=== PATIENT | female | born 2000 | race Hispanic/Latino ===

== ENCOUNTER 2024-01-21 13:39 | Emergency (ER) | payer BC ==
[~2024-01-21] VITALS: Ht 154.9 cm; Wt 104.3 kg
[2024-01-21] MEDS: SOLU-MEDROL 125MG VIAL IVP ONE (15:17)
[2024-01-21] MEDS: KETOROLAC 60 MG VIAL (30MG/ML) IM ONE (15:17)
[2024-01-21] MEDS: CYCLOBENZAPRINE HCL 10 MG TABLET PO ONE (15:17)
[2024-01-21] MEDS: ONDANSETRON ODT 4MG TAB SL ONE (15:33)
[2024-01-21] MEDS: ONDANSETRON ODT 4MG TAB ONE (15:33)
[2024-01-21 16:25] LABS: APPEARANCE,URINE CLEAR (CLEAR); BILIRUBIN,URINE NEGATIVE (NEGATIVE); COLOR,URINE LIGHT-YELLOW (YELLOW); GLUCOSE, URINE (UA) NEGATIVE (NEGATIVE); KETONES,URINE NEGATIVE (NEGATIVE); LEUKOCYTE ESTERASE ,URINE NEGATIVE Leu/uL (NEGATIVE); NITRATE,URINE NEGATIVE (NEGATIVE); OCCULT BLOOD,URINE NEGATIVE (NEGATIVE); PROTEIN,URINE 10 mg/dL (NEGATIVE); UROBILINOGEN,URINE 0.2 mg/dL (0.2-1.0)
[2024-01-21 16:29] LABS: ADD UA MICROSCOPIC YES
[2024-01-21 16:30] LABS: BACTERIA,URINE RARE /HPF (None Seen); HCG,QUALITATIVE URINE NEGATIVE (NEGATIVE); MUCUS,URINE RARE LPF (None Seen); SQUAMOUS EPITHELIAL CELL,UR RARE /HPF (0-2)
[2024-01-21] MEDS ORDERED: IBUP-2077 PO (17:08)
[2024-01-21] MEDS ORDERED: METH4TAB3 PO (17:08)
[2024-01-21] MEDS ORDERED: CYCL10TA16 PO (17:08)
[2024-01-21 17:19] VITALS: BP 120/82; PULSE 77; RESP 20; O2SAT 99
== END 2024-01-21 18:20 | disposition home or self-care (01) ==
LOC: EDH 13:39
DX: G89.29 Other chronic pain (principal); M54.42 Lumbago with sciatica, left side; M54.41 Lumbago with sciatica, right side
CPT/HCPCS: 99284; 96374; 81001; 81025; 72100; 96372; J2919; J1885

== ENCOUNTER 2024-08-11 05:01 | Emergency (ER) | payer SELFPAY ==
[~2024-08-11] VITALS: Ht 154.9 cm; Wt 106.1 kg
[~2024-08-11 05:01] MED LIST: CYCL10TA16 PO; IBUP-2077 PO; METH4TAB3 PO
[2024-08-11 05:04] VITALS: TEMP 98.4
--- NOTE | 2024-08-11 05:12 | ERN ---
ED Note History of Present Illness Stated Complaint: LOW BACK PAIN, DIFFUSE ABD PAIN, CP, N/V Chief Complaint: Abdominal Pain Time Seen by MD: 05:03 Dictation: This is a 23-year-old female who presented to the emergency room with complaints of multiple organ symptoms severe lower back pain radiating down her legs, diffuse abdominal pain nausea vomitings as well as pain radiating to the chest area. Her abdominal pain is very diffuse and upper quadrants mostly right and reported nausea vomitings profusely about 3-4 times prior to the presentation. No hematemesis or melena no fevers chills or rigors. Temperature 98.4 pulse 81 respirations 18 blood pressure 127/86 with a pulse oximetry of 98% on room air She has a history of lumbar radiculopathy and chronic lower back pain and has also received shots in the back. She has been to emergency rooms including [facility] as well as in [place]. Allergies: Coded Allergies: No Known Drug Allergies (Unverified Allergy, Unknown, 01/21/24) Home Meds Active Scripts Cyclobenzaprine HCl (Flexeril) 10 Mg Tab, 10 MG PO TID for muscle sstiffness for 10 Days, #30 TAB 0 Refills Prov:RAY STONE NP 01/21/24 Ibuprofen (Ibuprofen 800 mg Tab) 800 Mg Tab, 800 MG PO Q8H PRN for fever or pain, #30 TAB 0 Refills Prov:RAY STONE COMPUTER ENGINEERING PROFESSOR 01/21/24 Methylprednisolone (Medrol) 4 Mg Tab.ds.pk, 4 MG PO AD, #1 UNIT Prov:RAY STONE NP 01/21/24 Past Medical History Past Medical History: Anemia, Other Additional Past Medical Hx: CHRONIC BACK PAIN Surgical History: Other Surgical History Other: COSMETIC Family History: Negative Social History: Negative History: Not Applicable RN Note Reviewed/Agreed w/PFSH: Yes Review of System Dictation Constitutional: Negative for fever,chills, and weight loss Eyes: Negative for injury, pain,redness, and discharge ENT: Negative for injury,pain or swelling Cardiovascular: Negative for chest pain, palpitations, and edema Respiratory: Negative for shortness of breath, cough, and wheezing, Abdomen/GI: Negative for abdominal pain, nausea, vomiting, diarrhea, and constipation Back: Negative for injury and pain : Negative for injury, bleeding and discharge MS/Extremity: Negative for injury and deformity Skin: Negative for rash, and discoloration Neuro: Negative for headache, weakness, numbness, tingling, and seizure Psych: Negative for suicide ideation, homicidal ideation, and hallucinations Initial Vital Sign VS Vital Signs Date Time Temp Pulse Resp B/P (MAP) Pulse Ox O2 Delivery O2 Flow Rate FiO2 08/11/24 05:03 98.4 81 18 127/86 98 Room Air* 0 21 Physical Exam Dictation General: awake, alert, NAD Head/Face: Normocephalic, atraumatic Eyes: PERRL, EOMI, vision at baseline ENT: oral cavity clear, TMs clear, no signs of infection Neck: Trachea midline, supple, no nuchal rigidity Cardiovascular: RRR, normal S1/S2, No MRGs, no JVD Respiratory: CTAB, no respiratory distress, No rales or wheezes Abdomen: Soft, non-tender, non-distended, normal bowel sounds, no guarding or rebound. Skin: Warm, dry, normal turgor, no rash MS/Extremity: Pulses equal, no cyanosis, neurovascular intact, FROM Neuro: COAx4, GCS 15, strength 5/5, CN 2-12 intact, normal cerebellar exam, normal gait, Psych: Normal behavior, mood, and affect normal Extremities-trace edema without any palpable cords, Homans sign is negative Results (Laboratory/Radiology) Laboratory/Radiology Laboratory Tests Test 08/11/24 05:16 08/11/24 05:18 White Blood Count 9.3 K/uL (4.8-10.8) Red Blood Count 5.26 MIL/uL (4.00-5.50) Hemoglobin 10.8 g/dL (12.0-16.0) L Hematocrit 36.5 % (36-48) Mean Corpuscular Volume 69.4 fL (79-99) L Mean Corpuscular Hemoglobin 20.5 pg (27.0-33.0) L Mean Corpuscular Hemoglobin Concent 29.6 g/dL (32.0-36.0) L Red Cell Distribution Width 18.5 % (11.0-15.5) H Platelet Count 374 K/uL (130-400) Mean Platelet Volume 10.8 fL (7.5-10.5) H Immature Granulocyte % (Auto) 0.4 % (0-1) Neutrophils (%) (Auto) 65.1 % (40.0-77.0) Lymphocytes (%) (Auto) 25.6 % (21.0-51.0) Monocytes (%) (Auto) 6.2 % (3.0-13.0) Eosinophils (%) (Auto) 2.3 % (0.0-8.0) Basophils (%) (Auto) 0.4 % (0.0-5.0) Neutrophils # (Auto) 6.0 K/uL (1.8-7.7) Lymphocytes # (Auto) 2.4 K/uL (1.0-4.8) Monocytes # (Auto) 0.6 K/uL (0.1-1.0) Eosinophils # (Auto) 0.21 K/uL (0.00-0.70) Basophils # (Auto) 0.04 K/uL (0.00-0.20) Absolute Immature Granulocyte (auto 0.04 K/uL (0-1) Nucleated Red Blood Cells 0.0 % (0.0-0.19) Red Blood Cell Morphology See comments Sodium Level 141 mmol/L (136-145) Potassium Level 3.8 mmol/L (3.5-5.1) Chloride Level 108 mmol/L (101-111) Carbon Dioxide Level 25 mmol/L (21-32) Blood Urea Nitrogen 14 mg/dL (7-18) Creatinine 0.8 mg/dL (0.5-1.0) Glomerular Filtration Rate Calc 105 mL/min (>90) Random Glucose 110 mg/dL (70-105) H Total Calcium 9.1 mg/dL (8.5-10.1) Total Bilirubin 0.3 mg/dL (0.2-1.0) Aspartate Amino Transf (AST/SGOT) 47 U/L (10-37) H Alanine Aminotransferase (ALT/SGPT) 88 U/L (12-78) H Alkaline Phosphatase 106 U/L (50-136) Total Protein 7.5 g/dL (6.0-8.3) Albumin 3.0 g/dL (3.5-5.0) L Lipase 51 U/L (16-77) Urine Color YELLOW (YELLOW) Urine Appearance CLEAR (CLEAR) Urine pH 6.0 (5.0-8.0) Urine Specific [place] 1.028 (1.001-1.031) Urine Protein 10 mg/dL (NEGATIVE) H Urine Glucose (UA) NEGATIVE mg/dL (NEGATIVE) Urine Ketones NEGATIVE mg/dL (NEGATIVE) Urine Occult Blood +- (TRACE) (NEGATIVE) H Urine Nitrate NEGATIVE (NEGATIVE) Urine Bilirubin NEGATIVE mg/dL (NEGATIVE) Urine Urobilinogen 0.2 mg/dL (0.2-1.0) Urine Leukocyte Esterase NEGATIVE Key/uL Urine RBC 2-5 /HPF (0-1) H Urine WBC 2-5 /HPF (0-1) H Urine Squamous Epithelial Cells FEW /HPF (0-2) Urine Bacteria None /HPF (None Seen) Labs Reviewed?: Yes ED Course ED Course Orders Procedure Category Date Status Time Cbc With Differential LAB 08/11/24 Complete 05:11 Comprehensive LAB 08/11/24 Complete Metabolic Panel 05:11 Lipase LAB 08/11/24 Complete 05:11 Urinalysis Profile LAB 08/11/24 Complete 05:11 Morphine 2mg Syg PHA 08/11/24 Complete (Morphine 2mg Syg) 06:00 Ondansetron 4mg Inj PHA 08/11/24 Complete (Zofran 4mg Inj) 06:00 Pantoprazole 40mg Tab PHA 08/11/24 Complete (Protonix 40mg Tab 06:00 ,Urine Test LAB 08/11/24 In Process 05:59 Current Medications Medications (Trade) Dose Ordered Sig/Nohemi Route PRN Reason Start Time Stop Time Status Last Admin Dose Admin Morphine Sulfate (morPHINE 2MG SYG) 2 mg ONCE ONCE IVP 08/11/24 06:00 08/11/24 06:02 DC Ondansetron HCl (zoFRAN 4MG INJ) 4 mg ONCE ONCE IVP 08/11/24 06:00 08/11/24 06:02 DC 08/11/24 06:12 Pantoprazole Sodium (PROTonix 40MG TAB) 40 mg ONCE ONCE PO 08/11/24 06:00 08/11/24 06:02 DC 08/11/24 06:12 Vital Signs Date Time Temp Pulse Resp B/P (MAP) Pulse Ox O2 Delivery O2 Flow Rate FiO2 08/11/24 06:34 72 16 118/79 99 Room Air* 0 21 08/11/24 05:04 98.4 81 18 127/86 98 Room Air 0 08/11/24 05:03 98.4 81 18 127/86 98 Room Air* 0 21 We will perform diagnostic labs, advanced imaging and administer medications according to the patient's complaint. Once the results are available, will yumiko wadew and personally interpreted the labs to rule out any acute life-threatening emergency the trach require immediate intervention and treatment. I will then re-evaluate the patient after treatment and diagnostic exams have return to determine whether the patient requires any further testing, can safely be discharged home or need further admission to hospital for additional treatment and evaluation. Medical Decision Making MDM MDM: Differential diagnosis: Gastritis, esophagitis, cholecystitis, biliary colic, small-bowel obstruction, pancreatitis Rationale: Tests considered and ordered secondary to shared decision making include: Previous outside records reviewed: Old ER visits. Risk of complication and/or morbidity or mortality of patient management: None Medications-Per medication reconciliation Need for hospitalization: Patient does not meet criteria for hospitalization. Need for emergency major/minor surgery: No There are no social concerns with this patient. Prescription drug management Prescriptions will include symptomatic care Patient's prior external medical records from other ER visits were reviewed by me as indicated. Prior testing and results from previous visits were reviewed. Prior tests were taken into account with medical decision making and resource utilization, independent historian/historians were used to obtain complete medical history. I independently interpreted the test that were performed, results were reviewed by me and considered findings on radiology if ordered. Medical management and examination interpretation discussions were had by me with other qualified healthcare professionals as indicated for the patient's care. Problem List Problem List: (1) Acute exacerbation of chronic low back pain (2) Chronic sciatica (3) Biliary colic (4) Nausea & vomiting (5) Abnormal liver function tests DX & DISP Disposition: Discharge Departure Impression: Primary Impression: Acute exacerbation of chronic low back pain Additional Impressions: Chronic sciatica, Biliary colic, Nausea & vomiting, Abnormal liver function tests Condition: Stable Additional Instructions: Patient and the caregiver have been informed of all the diagnostic tests and the imaging conducted during the today's visit to the emergency room and has verbalized understanding of the results I have personally reviewed and interpreted all diagnostic exams performed here in the ER today as well as the vital signs documented by the nursing staff. The patient is now being discharged to home and should follow up with the primary care physician or the specialist as directed by the ER staff. Follow-up with primary care provider in 1 to 2 days. Take medications as directed here in the emergency room. Okay to continue home medications unless otherwise discussed during your visit in the emergency room today. Return to your nearest emergency room if symptoms worsen or if there is no improvement. Call 911 if you need immediate assistance. Take Tylenol or Motrin [id number] as needed and if no contraindications are present. Increase oral hydration. A wound culture or urine culture was ordered here in the emergency room department please follow-up with primary care provider and advise them to get repeat ports from our facility. If you had any Sam wrap/splints that were applied here, please do not remove them until you see your primary care or specialty. Referrals: SELF,REFERRAL (PCP) STELLA BEASLEY MD Aug 11, 2024 05:12
[2024-08-11 05:22] LABS: BASOPHILS # (AUTO) 0.04 K/uL (0.00-0.20); BASOPHILS % (AUTO) 0.4 % (0.0-5.0); EOSINOPHILS # (AUTO) 0.21 K/uL (0.00-0.70); EOSINOPHILS % (AUTO) 2.3 % (0.0-8.0); HEMATOCRIT 36.5 % (36-48); IMMATURE GRANULOCYTE ABSOLUTE 0.04 K/uL (0-1); LYMPHOCYTES # (AUTO) 2.4 K/uL (1.0-4.8); LYMPHOCYTES % (AUTO) 25.6 % (21.0-51.0); MEAN CORPUSCULAR HEMOGLOBIN 20.5 pg (27.0-33.0); MEAN CORPUSCULAR HGB CONC 29.6 g/dL (32.0-36.0); MEAN CORPUSCULAR VOLUME 69.4 fL (79-99); MONOCYTES # (AUTO) 0.6 K/uL (0.1-1.0); MONOCYTES % (AUTO) 6.2 % (3.0-13.0); NEUTROPHILS % (AUTO) 65.1 % (40.0-77.0); PLATELET COUNT (AUTO) 374 K/uL (130-400); RED BLOOD CELL COUNT(AUTO) 5.26 MIL/uL (4.00-5.50); RED CELL DISTRIBUTION WIDTH 18.5 % (11.0-15.5); WHITE BLOOD COUNT (AUTO) 9.3 K/uL (4.8-10.8)
[2024-08-11 05:29] LABS: APPEARANCE,URINE CLEAR (CLEAR); BILIRUBIN,URINE NEGATIVE (NEGATIVE); COLOR,URINE YELLOW (YELLOW); GLUCOSE, URINE (UA) NEGATIVE (NEGATIVE); KETONES,URINE NEGATIVE (NEGATIVE); LEUKOCYTE ESTERASE ,URINE NEGATIVE Leu/uL (NEGATIVE); NITRATE,URINE NEGATIVE (NEGATIVE); PROTEIN,URINE 10 mg/dL (NEGATIVE); UROBILINOGEN,URINE 0.2 mg/dL (0.2-1.0)
[2024-08-11 05:37] LABS: CREATININE 0.8 mg/dL (0.5-1.0); POTASSIUM 3.8 mmol/L (3.5-5.1)
[2024-08-11 05:41] LABS: BILIRUBIN,TOTAL 0.3 mg/dL (0.2-1.0); TOTAL PROTEIN, SERUM 7.5 g/dL (6.0-8.3)
[2024-08-11 05:46] LABS: ADD UA MICROSCOPIC YES; MUCUS,URINE RARE LPF (None Seen); SQUAMOUS EPITHELIAL CELL,UR FEW /HPF (0-2)
[2024-08-11] MEDS: ondanSETRON 4MG INJ IVP ONE (06:12)
[2024-08-11] MEDS: morPHINE 2 MG SYG IVP ONE (06:12)
[2024-08-11] MEDS: PANTOPrazole 40 MG TAB DR PO ONE (06:12)
[2024-08-11 06:34] VITALS: BP 118/79; PULSE 72; RESP 16; O2SAT 99
== END 2024-08-11 07:20 | disposition home or self-care (01) ==
LOC: EDH 05:01
DX: G89.29 Other chronic pain (principal); M54.50 Low back pain, unspecified; M54.31 Sciatica, right side; K80.50 Calculus of bile duct without cholangitis or cholecystitis without obstruction; R11.2 Nausea with vomiting, unspecified; R79.89 Other specified abnormal findings of blood chemistry
CPT/HCPCS: 99283; 96374; 80053; 83690; 85025; 81001; 81025; 36415; J2405

== ENCOUNTER 2024-12-07 20:17 | Emergency (ER) | payer BC ==
[~2024-12-07] VITALS: Ht 154.9 cm; Wt 108.9 kg
--- NOTE | 2024-12-07 20:19 | NUR ---
UA CUP PROVIDED
[2024-12-07 20:56] LABS: BASOPHILS # (AUTO) 0.04 K/uL (0.00-0.20); BASOPHILS % (AUTO) 0.3 % (0.0-5.0); EOSINOPHILS # (AUTO) 0.07 K/uL (0.00-0.70); EOSINOPHILS % (AUTO) 0.6 % (0.0-8.0); HEMATOCRIT 36.9 % (36-48); IMMATURE GRANULOCYTE ABSOLUTE 0.06 K/uL (0-1); LYMPHOCYTES # (AUTO) 2.8 K/uL (1.0-4.8); LYMPHOCYTES % (AUTO) 23.5 % (21.0-51.0); MEAN CORPUSCULAR HEMOGLOBIN 21.2 pg (27.0-33.0); MEAN CORPUSCULAR HGB CONC 29.3 g/dL (32.0-36.0); MEAN CORPUSCULAR VOLUME 72.5 fL (79-99); MONOCYTES # (AUTO) 0.6 K/uL (0.1-1.0); NEUTROPHILS # (AUTO) 8.3 K/uL (1.8-7.7); NEUTROPHILS % (AUTO) 70.1 % (40.0-77.0); PLATELET COUNT (AUTO) 358 K/uL (130-400); RED BLOOD CELL COUNT(AUTO) 5.09 MIL/uL (4.00-5.50); RED CELL DISTRIBUTION WIDTH 16.2 % (11.0-15.5); WHITE BLOOD COUNT (AUTO) 11.8 K/uL (4.8-10.8)
[2024-12-07 21:10] LABS: CREATININE 0.8 mg/dL (0.5-1.0); POTASSIUM 3.5 mmol/L (3.5-5.1)
[2024-12-07 21:33] LABS: APPEARANCE,URINE CLEAR (CLEAR); BILIRUBIN,URINE NEGATIVE (NEGATIVE); COLOR,URINE YELLOW (YELLOW); GLUCOSE, URINE (UA) NEGATIVE (NEGATIVE); KETONES,URINE 40 mg/dL (NEGATIVE); LEUKOCYTE ESTERASE ,URINE NEGATIVE Leu/uL (NEGATIVE); NITRATE,URINE NEGATIVE (NEGATIVE); OCCULT BLOOD,URINE NEGATIVE (NEGATIVE); PROTEIN,URINE 20 mg/dL (NEGATIVE); UROBILINOGEN,URINE 0.2 mg/dL (0.2-1.0)
[2024-12-07 21:34] LABS: ADD UA MICROSCOPIC YES
[2024-12-07 21:36] LABS: MUCUS,URINE FEW LPF (None Seen); SQUAMOUS EPITHELIAL CELL,UR FEW /HPF (0-2); WBC,URINE 0-1 /HPF (0-1)
[2024-12-07] MEDS: acetaMINOPHEN 325 MG TAB PO STA (21:37)
[2024-12-07 21:50] VITALS: BP 154/89; PULSE 88; RESP 18; TEMP 97.6; O2SAT 98
--- NOTE | 2024-12-07 22:07 | ERN ---
ED Note History of Present Illness Stated Complaint: SUPRAPUBIC PAIN Chief Complaint: Abdominal Pain Time Seen by MD: 20:20 Time Seen by Midlevel: 20:22 Dictation: 24-year-old female coming in with complaints of suprapubic pain for the last two weeks. Patient states states she was at work as she had a sudden pain says Gypsy region and left lower quadrant area. Denies any fever, nausea, vomiting, diarrhea, vaginal bleeding or vaginal discharge. Denies any dysuria. Allergies: Coded Allergies: No Known Drug Allergies (Unverified Allergy, Unknown, 01/21/24) Home Meds Active Scripts Cyclobenzaprine HCl (Flexeril) 10 Mg Tab, 10 MG PO TID for muscle sstiffness for 10 Days, #30 TAB 0 Refills Prov:RAY STONE BARREL COOPER 01/21/24 Ibuprofen (Ibuprofen 800 mg Tab) 800 Mg Tab, 800 MG PO Q8H PRN for fever or pain, #30 TAB 0 Refills Prov:RAY STONE BARREL COOPER 01/21/24 Methylprednisolone (Medrol) 4 Mg Tab.ds.pk, 4 MG PO AD, #1 UNIT Prov:RAY STONE NP 01/21/24 Past Medical History Past Medical History: Anemia, Other Additional Past Medical Hx: CHRONIC BACK PAIN Surgical History: Other Surgical History Other: [address]AV[address], ROD[place] Family History: Negative Social History: Negative History: Not Applicable LMP: Oct 31, 2024 Review of System Dictation Constitutional: Negative for fever,chills, and weight loss Eyes: Negative for injury, pain,redness, and discharge ENT: Negative for injury,pain or swelling Cardiovascular: Negative for chest pain, palpitations, and edema Respiratory: Negative for shortness of breath, cough, and wheezing, Abdomen/GI: Complaining of suprapubic pain, no nausea, no vomiting, no diarrhea, and no constipation Back: Negative for injury and pain : Negative for injury, bleeding and discharge MS/Extremity: Negative for injury and deformity Skin: Negative for rash, and discoloration Neuro: Negative for headache, weakness, numbness, tingling, and seizure Psych: Negative for suicide ideation, homicidal ideation, and hallucinations Review of Systems: was completed Initial Vital Sign VS Vital Signs Date Time Temp Pulse Resp B/P (MAP) Pulse Ox O2 Delivery O2 Flow Rate FiO2 4/13/25 20:19 98.4 76 20 165/88 98 Room Air 12/07/24 21:50 0 21 Physical Exam Dictation General: awake, alert, NAD Head/Face: Normocephalic, atraumatic Eyes: PERRL, EOMI, vision at baseline ENT: oral cavity clear, TMs clear, no signs of infection Neck: Trachea midline, supple, no nuchal rigidity Cardiovascular: RRR, normal S1/S2, No MRGs, no JVD Respiratory: CTAB, no respiratory distress, No rales or wheezes Abdomen: Soft, non-tender, non-distended, normal bowel sounds, no guarding or rebound. Skin: Warm, dry, normal turgor, no rash MS/Extremity: Pulses equal, no cyanosis, neurovascular intact, FROM Neuro: COAx4, GCS 15, strength 5/5, CN 2-12 intact, normal cerebellar exam, normal gait, Psych: Normal behavior, mood, and affect normal Results (Laboratory/Radiology) Laboratory/Radiology Laboratory Tests Test 12/07/24 20:46 12/07/24 21:26 White Blood Count 11.8 K/uL (4.8-10.8) H Red Blood Count 5.09 MIL/uL (4.00-5.50) Hemoglobin 10.8 g/dL (12.0-16.0) L Hematocrit 36.9 % (36-48) Mean Corpuscular Volume 72.5 fL (79-99) L Mean Corpuscular Hemoglobin 21.2 pg (27.0-33.0) L Mean Corpuscular Hemoglobin Concent 29.3 g/dL (32.0-36.0) L Red Cell Distribution Width 16.2 % (11.0-15.5) H Platelet Count 358 K/uL (130-400) Mean Platelet Volume 10.8 fL (7.5-10.5) H Immature Granulocyte % (Auto) 0.5 % (0-1) Neutrophils (%) (Auto) 70.1 % (40.0-77.0) Lymphocytes (%) (Auto) 23.5 % (21.0-51.0) Monocytes (%) (Auto) 5.0 % (3.0-13.0) Eosinophils (%) (Auto) 0.6 % (0.0-8.0) Basophils (%) (Auto) 0.3 % (0.0-5.0) Neutrophils # (Auto) 8.3 K/uL (1.8-7.7) H Lymphocytes # (Auto) 2.8 K/uL (1.0-4.8) Monocytes # (Auto) 0.6 K/uL (0.1-1.0) Eosinophils # (Auto) 0.07 K/uL (0.00-0.70) Basophils # (Auto) 0.04 K/uL (0.00-0.20) Absolute Immature Granulocyte (auto 0.06 K/uL (0-1) Nucleated Red Blood Cells 0.0 % (0.0-0.19) Red Blood Cell Morphology See comments Sodium Level 138 mmol/L (136-145) Potassium Level 3.5 mmol/L (3.5-5.1) Chloride Level 104 mmol/L (101-111) Carbon Dioxide Level 28 mmol/L (21-32) Blood Urea Nitrogen 15 mg/dL (7-18) Creatinine 0.8 mg/dL (0.5-1.0) Glomerular Filtration Rate Calc 105 mL/min (>90) Random Glucose 112 mg/dL (70-105) H Total Calcium 9.3 mg/dL (8.5-10.1) Human Chorionic Gonadotropin, Quant 0 mIU/mL (0-5) Urine Color YELLOW (YELLOW) Urine Appearance CLEAR (CLEAR) Urine pH 6.0 (5.0-8.0) Urine Specific [place] 1.036 (1.001-1.031) Urine Protein 20 mg/dL (NEGATIVE) H Urine Glucose (UA) NEGATIVE mg/dL (NEGATIVE) Urine Ketones 40 mg/dL (NEGATIVE) H Urine Occult Blood NEGATIVE (NEGATIVE) Urine Nitrate NEGATIVE (NEGATIVE) Urine Bilirubin NEGATIVE mg/dL (NEGATIVE) Urine Urobilinogen 0.2 mg/dL (0.2-1.0) Urine Leukocyte Esterase NEGATIVE Key/uL Urine RBC 2-5 /HPF (0-1) H Urine WBC 0-1 /HPF (0-1) Urine Squamous Epithelial Cells FEW /HPF (0-2) Urine Bacteria None /HPF (None Seen) Labs Reviewed?: Yes ED Course ED Course Orders Procedure Category Date Status Time Cbc With Differential LAB 12/07/24 Complete 20:22 Basic Metabolic Panel LAB 12/07/24 Complete 20:22 Urinalysis Profile LAB 12/07/24 Complete 20:22 Hcg,Quantitative LAB 12/07/24 Complete 20:22 Acetaminophen 325 Tab PHA 12/07/24 Complete (Tylenol 325mg Tab 20:23 Current Medications Medications (Trade) Dose Ordered Sig/Nohemi Route PRN Reason Start Time Stop Time Status Last Admin Dose Admin Acetaminophen (TYLenol 325MG TAB) 650 mg ONCE STAT PO 12/07/24 20:23 12/07/24 20:24 DC 12/07/24 21:37 Vital Signs Date Time Temp Pulse Resp B/P (MAP) Pulse Ox O2 Delivery O2 Flow Rate FiO2 12/07/24 21:50 97.5 88 18 154/89 98 Room Air* 0 21 12/07/24 20:19 98.4 76 20 165/88 98 Room Air Medical Decision Making MDM MDM: CBC shows no leukocytosis, mild anemia hemoglobin of 10.8, however this seems to be patient's baseline his last year she had the same hemoglobin. No thrombocytopenia. Chemistry unremarkable. Urine shows no evidence of urinary tract infection. Discussed with the patient's finding. Educated patient was this continues she needs to follow up with PCP or OBGYN at this could be a gynecological problem. This time patient's vital signs are stable and blood work is stable. There is no vaginal discharge or vaginal bleeding. Abdomen is soft, nontender. Patient was okay to follow up outpatient. Differential diagnosis: Rationale: Tests considered and ordered secondary to shared decision making include: Previous outside records reviewed: Old ER visits. Risk of complication and/or morbidity or mortality of patient management: None Medications-Per medication reconciliation Need for hospitalization: Patient does not meet criteria for hospitalization. Need for emergency major/minor surgery: No There are no social concerns with this patient. Prescription drug management Prescriptions will include symptomatic care Patient's prior external medical records from other ER visits were reviewed by me as indicated. Prior testing and results from previous visits were reviewed. Prior tests were taken into account with medical decision making and resource utilization, independent historian/historians were used to obtain complete medical history. I independently interpreted the test that were performed, results were reviewed by me and considered findings on radiology if ordered. Medical management and examination interpretation discussions were had by me with other qualified healthcare professionals as indicated for the patient's care. DX & DISP Disposition: Discharge Departure Impression: Primary Impression: Abdominal pain Condition: Stable Additional Instructions: Please follow up with PCP and or with the OBGYN Referrals: SELF,REFERRAL (PCP) Time of Disposition: 22:05 I have reviewed the case, and I agree with, Diagnosis and Plan THALIA MALDONADO NP Dec 07, 2024 22:07
== END 2024-12-07 22:16 | disposition home or self-care (01) ==
LOC: EDH 20:17
DX: R10.2 Pelvic and perineal pain (principal); Z79.899 Other long term (current) drug therapy
CPT/HCPCS: 36415; 80048; 81001; 84702; 85025; 99283

== ENCOUNTER 2025-02-02 14:29 | Emergency (ER) | payer BC ==
[~2025-02-02] VITALS: Ht 162.6 cm; Wt 108.0 kg
[2025-02-02 14:37] VITALS: TEMP 98.8
[2025-02-02 15:41] LABS: BASOPHILS # (AUTO) 0.05 K/uL (0.00-0.20); BASOPHILS % (AUTO) 0.5 % (0.0-5.0); EOSINOPHILS # (AUTO) 0.12 K/uL (0.00-0.70); EOSINOPHILS % (AUTO) 1.2 % (0.0-8.0); HEMATOCRIT 40.1 % (36-48); IMMATURE GRANULOCYTE ABSOLUTE 0.06 K/uL (0-1); LYMPHOCYTES # (AUTO) 2.6 K/uL (1.0-4.8); LYMPHOCYTES % (AUTO) 25.2 % (21.0-51.0); MEAN CORPUSCULAR HEMOGLOBIN 21.3 pg (27.0-33.0); MEAN CORPUSCULAR HGB CONC 29.9 g/dL (32.0-36.0); MEAN CORPUSCULAR VOLUME 71.1 fL (79-99); MONOCYTES # (AUTO) 0.7 K/uL (0.1-1.0); MONOCYTES % (AUTO) 6.9 % (3.0-13.0); NEUTROPHILS # (AUTO) 6.9 K/uL (1.8-7.7); NEUTROPHILS % (AUTO) 65.6 % (40.0-77.0); PLATELET COUNT (AUTO) 430 K/uL (130-400); RED BLOOD CELL COUNT(AUTO) 5.64 MIL/uL (4.00-5.50); RED CELL DISTRIBUTION WIDTH 16.4 % (11.0-15.5); WHITE BLOOD COUNT (AUTO) 10.4 K/uL (4.8-10.8)
[2025-02-02] MEDS: MAG/ALUM/SIMETH 30 ML UDCUP PO ONE (15:53)
[2025-02-02] MEDS: PANTOPrazole 40 MG/VIAL IVP ONE (15:53)
[2025-02-02] MEDS: LIDOCAINE HCL 2% VISCOUS 15 ML UDCUP PO ONE (15:53)
[2025-02-02] MEDS: LACTATED RINGERS 1000ML 1,000 ML IV ONE (15:53)
[2025-02-02 15:57] LABS: CREATININE 0.6 mg/dL (0.5-1.0); POTASSIUM 4.4 mmol/L (3.5-5.1)
--- NOTE | 2025-02-02 16:06 | ERN ---
General Chief Complaint: Abdominal Pain Stated Complaint: ABDOMINAL PAIN Time Seen by MD: 14:34 Source: patient History of Present Illness Initial Comments This is a 24-year-old female coming in complaining of nauseousness and vomiting and diarrhea. Patient states that this has been ongoing for two days. Does not recall eating anything contaminated. Allergies: Coded Allergies: No Known Drug Allergies (Unverified Allergy, Unknown, 01/21/24) Home Meds Active Scripts Cyclobenzaprine HCl (Flexeril) 10 Mg Tab, 10 MG PO TID for muscle sstiffness for 10 Days, #30 TAB 0 Refills Prov:RAY STONE [employer] 01/21/24 Ibuprofen (Ibuprofen 800 mg Tab) 800 Mg Tab, 800 MG PO Q8H PRN for fever or nadine n, #30 TAB 0 Refills Prov:RAY STONE [employer] 01/21/24 Methylprednisolone (Medrol) 4 Mg Tab.ds.pk, 4 MG PO AD, #1 UNIT Prov:RAY STONE [employer] 01/21/24 Past Medical History Past Medical History: Anemia Medical History Other: CHRONIC BACK PAIN Past Surgical History: None Surgical History Other: TUMMY TUCK, LIPO, BBL Family History Family History: Negative Social History Social History: Negative Female( History) History: Not Applicable LMP: Jan 29, 2025 ROS Dictation CONSTITUTIONAL: No chills, no fever, no weakness, no diaphoresis, no malaise. HEAD/FACE: No signs of trauma. EENT: No eye pain, no blurred vision, no tearing, no double vision, no ear pain, no ear discharge, no nose pain, no nasal congestion, no throat pain, no th roat swelling, no mouth pain. RESPIRATORY: No cough, no orthopnea, no SOB, no stridor, no wheezing. CARDIOVASCULAR: No chest pain, no edema, no palpitations, no syncope. GASTROINTESTINAL/ABDOMINAL: No abdominal pain, no constipation, diarrhea, no nausea, no vomiting. GENITOURINARY: No abnormal discharge, no dysuria, no frequent urination, no hematuria. No complaints of pain in the genitals. MUSCULOSKELETAL: No back pain, no gout, no joint pain, no joint swelling, no muscle pain, no muscle stiffness, no neck pain. INTEGUMENTARY: No change in color, no change in hair/nails, no dryness, no lesion, no lumps, no rash. NEUROLOGICAL/PSYCH: No anxiety, not depressed, no emotional problem, no headache, no numbness, no pre-existing deficit, no history of seizures, no tremors, no weakness. HEMATOLOGIC/LYMPHATIC: Not anemic, no history of blood clots, no apparent bleeding, no bruising, glands not swollen. All Systems Negative, Except as Noted. Physical Exam Physical Exam Dictation VITAL SIGNS: Reviewed. GENERAL APPEARANCE: Alert, oriented x3, no acute distress, obese. HEAD AND FACE: Non-traumatic. EYES: PERRL, pink conjunctivas, eyelid no trauma, anterior chamber clear. EARS: Pinnas intact and no signs of trauma or erythema. Ear canals clear and no discharge. TMs no erythema. NOSE: No discharge, no bleeding. OROPHARYNX: Mouth normal, teeth no caries, tongue pink. Pharynx clear, no erythema. Tonsils no exudates, no abscesses noted. Mucous membrane moist. NECK: Supple, non-tender, no thyromegaly, no masses, no JVD, no bruits. BREAST: Deferred. CHEST: No tenderness, no crepitus, no paradoxical movement, no retractions. LUNGS: Clear, well-ventilated, symmetric, no rales, no wheezing, no rhonchi, no stridor, good breath sounds bilaterally. HEART: Regular rate, regular rhythm, no murmur, no gallops. VASCULAR: No peripheral edema. ABDOMEN: Soft, positive bowel sounds, nondistended, no guarding, nontender, no rebound, no masses no hepatomegaly, no splenomegaly, no Pittman's sign, no hernias. RECTAL: Deferred. GENITAL: Deferred. NEUROLOGICAL: Normal speech, gross motor function intact, gross sensory function intact. MUSCULOSKELETAL: Neck nontender, full range of motion, back nontender, full range of motion. EXTREMITIES: Nontender, full range of motion. SKIN: Color pink, dry, no turgor, no rash, no lacerations, no abrasions, no c ontusions. LYMPHATICS: Deferred. Results Laboratory and Microbiology Lab and Micro Result Laboratory Tests Test 02/02/25 15:23 02/02/25 15:57 White Blood Count 10.4 K/uL (4.8-10.8) Red Blood Count 5.64 MIL/uL (4.00-5.50) H Hemoglobin 12.0 g/dL (12.0-16.0) Hematocrit 40.1 % (36-48) Mean Corpuscular Volume 71.1 fL (79-99) L Mean Corpuscular Hemoglobin 21.3 pg (27.0-33.0) L Mean Corpuscular Hemoglobin Concent 29.9 g/dL (32.0-36.0) L Red Cell Distribution Width 16.4 % (11.0-15.5) H Platelet Count 430 K/uL (130-400) H Mean Platelet Volume 10.5 fL (7.5-10.5) Immature Granulocyte % (Auto) 0.6 % (0-1) Neutrophils (%) (Auto) 65.6 % (40.0-77.0) Lymphocytes (%) (Auto) 25.2 % (21.0-51.0) Monocytes (%) (Auto) 6.9 % (3.0-13.0) Eosinophils (%) (Auto) 1.2 % (0.0-8.0) Basophils (%) (Auto) 0.5 % (0.0-5.0) Neutrophils # (Auto) 6.9 K/uL (1.8-7.7) Lymphocytes # (Auto) 2.6 K/uL (1.0-4.8) Monocytes # (Auto) 0.7 K/uL (0.1-1.0) Eosinophils # (Auto) 0.12 K/uL (0.00-0.70) Basophils # (Auto) 0.05 K/uL (0.00-0.20) Absolute Immature Granulocyte (auto 0.06 K/uL (0-1) Nucleated Red Blood Cells 0.0 % (0.0-0.19) Red Blood Cell Morphology See comments Sodium Level 141 mmol/L (136-145) Potassium Level 4.4 mmol/L (3.5-5.1) Chloride Level 105 mmol/L (101-111) Carbon Dioxide Level 29 mmol/L (21-32) Blood Urea Nitrogen 12 mg/dL (7-18) Creatinine 0.6 mg/dL (0.5-1.0) Glomerular Filtration Rate Calc 128 mL/min (>90) Random Glucose 101 mg/dL (70-105) Total Calcium 9.4 mg/dL (8.5-10.1) Total Bilirubin 0.2 mg/dL (0.2-1.0) Aspartate Amino Transf (AST/SGOT) 16 U/L (10-37) Alanine Aminotransferase (ALT/SGPT) 31 U/L (12-78) Alkaline Phosphatase 118 U/L (50-136) Total Protein 8.4 g/dL (6.0-8.3) H Albumin 3.6 g/dL (3.5-5.0) Lipase 42 U/L (16-77) Human Chorionic Gonadotropin, Quant 0 mIU/mL (0-5) Urine Color COLORLESS (YELLOW) Urine Appearance CLEAR (CLEAR) Urine pH 6.0 (5.0-8.0) Urine Specific [place] 1.013 (1.001-1.031) Urine Protein NEGATIVE mg/dL (NEGATIVE) Urine Glucose (UA) NEGATIVE mg/dL (NEGATIVE) Urine Ketones NEGATIVE mg/dL (NEGATIVE) Urine Occult Blood SMALL (NEGATIVE) H Urine Nitrate NEGATIVE (NEGATIVE) Urine Bilirubin NEGATIVE mg/dL (NEGATIVE) Urine Urobilinogen 0.2 mg/dL (0.2-1.0) Urine Leukocyte Esterase NEGATIVE Key/uL Urine RBC 2-5 /HPF (0-1) H Urine WBC 0-1 /HPF (0-1) Urine Squamous Epithelial Cells RARE /HPF (0-2) Urine Bacteria RARE /HPF (None Seen) Labs Reviewed?: Yes MDM MDM: Differential diagnosis: Gastroenteritis, viral gastroenteritis, nauseousness and vomiting Rationale: Tests considered and ordered secondary to shared decision making incl ude: labs, ECG and radiology Previous outside records reviewed: Old ER visits. Risk of complication and/or morbidity or mortality of patient management: None Medications-Per medication reconciliation Patient is a 24-year-old female coming in complaining of gastroenteritis symptoms. Patient states that she is feeling like the stress couple of days patient has had laboratory workup within normal limits. Patient discharged with a diagnosis of viral gastroenteritis ED Course Orders Procedure Category Date Status Time Cbc With Differential LAB 02/02/25 Complete 15:09 Comprehensive LAB 02/02/25 Complete Metabolic Panel 15:09 Hcg,Quantitative LAB 02/02/25 Complete 15:09 Urinalysis Profile LAB 02/02/25 Complete 15:09 Lactated Ringers PHA 02/02/25 Complete 1000ml (Lactated 15:30 Lidocaine Hcl 2% PHA 02/02/25 Complete Viscous (Lidocaine Hcl 15:30 Mag/Alum/Simeth 30ml PHA 02/02/25 Complete (Maalox Plus 30ml) 15:30 Pantoprazole 40mg Inj PHA 02/02/25 Complete (Protonix 40mg Inj 15:30 Lipase LAB 02/02/25 Complete 15:09 Current Medications Medications (Trade) Dose Ordered Sig/Nohemi Route PRN Reason Start Time Stop Time Status Last Admin Dose Admin Al Hydroxide/Mg Hydroxide (MAALox PLUS 30ML) 30 ml ONCE ONCE PO 02/02/25 15:30 02/02/25 15:31 DC 02/02/25 15:53 Lactated Ringer's 1,000 ml @ 0 mls/hr ONCE ONCE IV 02/02/25 15:30 02/02/25 15:31 DC 02/02/25 15:53 Lidocaine HCl (Lidocaine HCl 2% Viscous) 10 ml ONCE ONCE PO 02/02/25 15:30 02/02/25 15:31 DC 02/02/25 15:53 Pantoprazole Sodium (PROTonix 40MG INJ) 40 mg ONCE ONCE IVP 02/02/25 15:30 02/02/25 15:31 DC 02/02/25 15:53 Vital Signs Date Time Temp Pulse Resp B/P (MAP) Pulse Ox O2 Delivery O2 Flow Rate FiO2 02/02/25 14:37 98.8 63 16 135/77 100 Room Air* 0 21 02/02/25 14:35 98.8 63 16 135/77 100 Room Air 0 DX & DISP Disposition: Discharge Departure Impression: Primary Impression: Viral gastroenteritis Condition: Stable Scripts Lactobacillus Acidophilus (Acidophilus Probiotic) 500 Million Cell Capsule 1 CAP PO DAILY for 30 Days, #30 CAP 0 Refills Prov: SALLY MORENO MD 02/02/25 Famotidine (Famotidine) 20 Mg Tablet 1 TAB PO BID for 20 Days, #40 TAB 0 Refills Prov: SALLY MORENO MD 02/02/25 Additional Instructions: FOLLOW-UP WITH PRIMARY CARE PROVIDER IN 1 TO 2 DAYS. TAKE MEDICATIONS DIRE CTED HERE IN THE EMERGENCY ROOM. OKAY TO CONTINUE HOME MEDICATIONS UNLESS OTHERWISE DISCUSSED DURING YOUR VISIT IN THE EMERGENCY ROOM TODAY. RETURN TO YOUR NEAREST EMERGENCY ROOM IF SYMPTOMS WORSEN OR IF THERE IS NO IMPROVEMENT. CALL 911 IF YOU NEED IMMEDIATE ASSISTANCE. TAKE TYLENOL [id number] NEEDED AND IF NO CONTRAINDICATIONS ARE PRESENT. INCREASE ORAL HYDRATION. A WOUND CULTURE OR URINE CULTURE WAS ORDERED HERE IN THE EMERGENCY ROOM DEPARTMENT PLEASE FOLLOW-UP WITH PRIMARY CARE PROVIDER AND ADVISE THEM TO GET REPORTS FROM OUR FACILITY. IF YOU HAD ANY HERMILO WRAP/SPLINTS THAT WERE APPLIED HERE, PLEASE DO NOT REMOVE THEM UNTIL YOU SEE YOUR PRIMARY CARE OR SPECIALTY. Referrals: Referrals: SELF,REFERRAL (PCP) YOVANNY VICKERS MD Time of Disposition: 16:48 SALLY MORENO MD Feb 02, 2025 16:05
[2025-02-02 16:07] LABS: ALBUMIN 3.6 g/dL (3.5-5.0); BILIRUBIN,TOTAL 0.2 mg/dL (0.2-1.0); TOTAL PROTEIN, SERUM 8.4 g/dL (6.0-8.3)
[2025-02-02 16:15] LABS: APPEARANCE,URINE CLEAR (CLEAR); BILIRUBIN,URINE NEGATIVE (NEGATIVE); COLOR,URINE COLORLESS (YELLOW); GLUCOSE, URINE (UA) NEGATIVE (NEGATIVE); KETONES,URINE NEGATIVE (NEGATIVE); LEUKOCYTE ESTERASE ,URINE NEGATIVE Leu/uL (NEGATIVE); NITRATE,URINE NEGATIVE (NEGATIVE); OCCULT BLOOD,URINE SMALL (NEGATIVE); PROTEIN,URINE NEGATIVE (NEGATIVE); UROBILINOGEN,URINE 0.2 mg/dL (0.2-1.0)
[2025-02-02 16:18] LABS: ADD UA MICROSCOPIC YES
[2025-02-02 16:21] LABS: BACTERIA,URINE RARE /HPF (None Seen); MUCUS,URINE RARE LPF (None Seen); SQUAMOUS EPITHELIAL CELL,UR RARE /HPF (0-2); WBC,URINE 0-1 /HPF (0-1)
[2025-02-02] MEDS ORDERED: FAMO20TA8 PO (16:48)
[2025-02-02] MEDS ORDERED: LACT-356 PO (16:48)
[2025-02-02 17:14] VITALS: BP 127/68; PULSE 71; RESP 17; O2SAT 100
== END 2025-02-02 17:36 | disposition home or self-care (01) ==
LOC: EDH 14:29
DX: A08.4 Viral intestinal infection, unspecified (principal); R10.2 Pelvic and perineal pain; Z79.899 Other long term (current) drug therapy
CPT/HCPCS: 99284; 96374; 96361; 80053; 84702; 83690; 85025; 81001; 36415; J7120; J2470

== ENCOUNTER 2025-02-24 09:14 | Emergency (ER) | payer BC ==
[~2025-02-24] VITALS: Ht 154.9 cm; Wt 104.8 kg
[~2025-02-24 09:14] MED LIST changes: +FAMO20TA8 PO; +LACT-356 PO
[2025-02-24 09:47] LABS: APPEARANCE,URINE CLEAR (CLEAR); GLUCOSE, URINE (UA) NEGATIVE (NEGATIVE); LEUKOCYTE ESTERASE ,URINE NEGATIVE Leu/uL (NEGATIVE); NITRATE,URINE NEGATIVE (NEGATIVE); OCCULT BLOOD,URINE NEGATIVE (NEGATIVE)
[2025-02-24 09:51] LABS: HCG,QUALITATIVE URINE NEGATIVE (NEGATIVE)
[2025-02-24 09:52] LABS: SQUAMOUS EPITHELIAL CELL,UR MOD /HPF (0-2)
[2025-02-24 10:04] LABS: SARS-CoV-2, RNA, NAAT NEGATIVE SARS CoV-2 (NEGATIVE)
[2025-02-24 10:11] LABS: INFLUENZA TYPE A Negative For Type A (NEGATIVE); INFLUENZA TYPE B Negative For Type B (NEGATIVE)
[2025-02-24 10:27] LABS: IMMATURE GRANULOCYTE ABSOLUTE 0.04 K/uL (0-1); NUCLEATED RED BLOOD CELLS 0.0 % (0.0-0.19); PLATELET COUNT (AUTO) 346 K/uL (130-400); RED BLOOD CELL COUNT(AUTO) 5.46 MIL/uL (4.00-5.50); RED CELL DISTRIBUTION WIDTH 16.6 % (11.0-15.5); WHITE BLOOD COUNT (AUTO) 12.3 K/uL (4.8-10.8)
[2025-02-24] MEDS: 0.9%NACL 1000ML 1,000 ML IV ONE (10:35)
[2025-02-24] MEDS: FAMOTIDINE 20MG VIAL IV ONE (10:35)
[2025-02-24 11:04] LABS: ASPARTATE AMINOTRANSFERASE 26.0 U/L (10-37); CREATININE 0.6 mg/dL (0.5-1.0); GLOMERULAR FILTR. RATE CALC 128.0 mL/min (>90); GLUCOSE,RANDOM 98.0 mg/dL (70-105); SODIUM SERUM 140.0 mmol/L (136-145); TOTAL PROTEIN, SERUM 7.5 g/dL (6.0-8.3); UREA NITROGEN, BLOOD 15.0 mg/dL (7-18)
[2025-02-24] MEDS ORDERED: FAMO-136 PO (12:12)
[2025-02-24] MEDS ORDERED: ONDA-243 PO (12:12)
--- NOTE | 2025-02-24 12:12 | ERN ---
General Chief Complaint: Multiple Complaints Stated Complaint: RT NECK CHEST ARM PAIN Time Seen by : :24 Time Seen by Midlevel: 09:24 Source: patient History of Present Illness Initial Comments Patient is a 24-year-old female presenting to the emergency department for evaluation of midepigastric abdominal pain that is intermittent in nature. Patient states she recently recovered from flu-like symptoms. Denies any other symptoms Allergies: Coded Allergies: ceftriaxone (Unverified Allergy, Intermediate, HIVES, 02/24/25) Home Meds Active Scripts Lactobacillus Acidophilus (Acidophilus Probiotic) 500 Million Cell Capsule, 1 CAP PO DAILY for 30 Days, #30 CAP 0 Refills Prov:SALLY MORENO MD 02/02/25 Famotidine (Famotidine) 20 Mg Tablet, 1 TAB PO BID for 20 Days, #40 TAB 0 Refills Prov:SALLY MORENO MD 02/02/25 Cyclobenzaprine HCl (Flexeril) 10 Mg Tab, 10 MG PO TID for muscle sstiffness for 10 Days, #30 TAB 0 Refills Prov:RAY STONE NP 01/21/24 Ibuprofen (Ibuprofen 800 mg Tab) 800 Mg Tab, 800 MG PO Q8H PRN for fever or pain, #30 TAB 0 Refills Prov:RAY STONE NP 01/21/24 Methylprednisolone (Medrol) 4 Mg Tab.ds.pk, 4 MG PO AD, #1 UNIT Prov:RAY STONE NP 01/21/24 Past Medical History Past Medical History: Anemia Medical History Other: CHRONIC BACK PAIN Past Surgical History: Other Surgical History Other: ARMANDO OSORIO, JAVY, BBL Family History Family History: Negative Social History Social History: Negative Female( History) History: Not Applicable ROS Dictation CONSTITUTIONAL: Negative except for HPI HEAD/FACE: Negative except for HPI EENT: Negative except for HPI RESPIRATORY: Negative except for HPI GASTROINTESTINAL/ABDOMINAL: Negative except for HPI GENITOURINARY: Negative except for HPI MUSCULOSKELETAL: Negative except for HPI INTEGUMENTARY: Negative except for HPI NEUROLOGICAL/PSYCH: Negative except for HPI HEMATOLOGIC/LYMPHATIC: Negative except for HPI All Systems Negative, Except as noted above. 13 point review of systems assessed and all negative except for above. Physical Exam Physical Exam Dictation Vital Signs reviewed General Appearance: Alert, oriented x 3, no acute distress, well developed, nourished. Head and Face: non-traumatic. Eyes: PERRL, pink conjunctivas, eyelid no trauma, anterior chamber with arcus senilis. Ears: Pinnas intact and no signs of trauma or erythema ear canals clear and no discharge TM no erythema Nose: No discharge, no bleeding. Oropharynx: Mouth normal, tongue pink, pharynx clear,no erythema, tonsils no exudates, no abscesses noted, mucous membrane moist Neck: Supple, non-tender, no thyromegaly, no masses, no JVD, no bruits Breast:Deferred Chest:No tenderness, no crepitus, no paradoxical movement, no retractions Lungs:Clear, well-ventilated, symmetric, no rales, no wheezing, no rhonchi, no stridor, good breath sounds bilaterally Heart: Regular rate, regular rhythm, no murmur, no gallops Vascular: no peripheral edema, Abdomen: Soft, positive bowel sounds, nondistended, no guarding, nontender, no rebound, no masses no hepatomegaly, no splenomegaly, no Pittman's sign, no hernias. Rectal: Deferred Genital: Deferred Neurological: Normal speech, motor function intact, sensory function intact Musculoskeletal: Neck nontender, full range of motion, back nontender, full range of motion, Extremities: nontender, full range of motion Skin: Color pink, dry, no turgor, no rash, no lacerations, no abrasions, no contusions. Lymphatic: Deferred Results Laboratory and Microbiology Lab and Micro Result Laboratory Tests Test 02/24/25 09:31 02/24/25 09:42 02/24/25 10:20 02/24/25 10:37 Urine Color LIGHT-YELLOW (YELLOW) Urine Appearance CLEAR (CLEAR) Urine pH 6.0 (5.0-8.0) Urine Specific [place] 1.027 (1.001-1.031) Urine Protein NEGATIVE mg/dL (NEGATIVE) Urine Glucose (UA) NEGATIVE mg/dL (NEGATIVE) Urine Ketones NEGATIVE mg/dL (NEGATIVE) Urine Occult Blood NEGATIVE (NEGATIVE) Urine Nitrate NEGATIVE (NEGATIVE) Urine Bilirubin NEGATIVE mg/dL (NEGATIVE) Urine Urobilinogen 0.2 mg/dL (0.2-1.0) Urine Leukocyte Esterase NEGATIVE Key/uL Urine RBC 2-5 /HPF (0-1) H Urine WBC 2-5 /HPF (0-1) H Urine Squamous Epithelial Cells MOD /HPF (0-2) Urine Bacteria FEW /HPF (None Seen) Urine HCG, Qualitative NEGATIVE (NEGATIVE) Influenza Type A Antigen Negative For Type A Influenza Type B Antigen Negative For Type B SARS-CoV-2, RNA, NAAT NEGATIVE SARS CoV-2 White Blood Count 12.3 K/uL (4.8-10.8) H Red Blood Count 5.46 MIL/uL (4.00-5.50) Hemoglobin 11.7 g/dL (12.0-16.0) L Hematocrit 38.4 % (36-48) Mean Corpuscular Volume 70.3 fL (79-99) L Mean Corpuscular Hemoglobin 21.4 pg (27.0-33.0) L Mean Corpuscular Hemoglobin Concent 30.5 g/dL (32.0-36.0) L Red Cell Distribution Width 16.6 % (11.0-15.5) H Platelet Count 346 K/uL (130-400) Mean Platelet Volume 10.6 fL (7.5-10.5) H Immature Granulocyte % (Auto) 0.3 % (0-1) Neutrophils (%) (Auto) 73.2 % (40.0-77.0) Lymphocytes (%) (Auto) 19.4 % (21.0-51.0) L Monocytes (%) (Auto) 6.2 % (3.0-13.0) Eosinophils (%) (Auto) 0.6 % (0.0-8.0) Basophils (%) (Auto) 0.3 % (0.0-5.0) Neutrophils # (Auto) 9.0 K/uL (1.8-7.7) H Lymphocytes # (Auto) 2.4 K/uL (1.0-4.8) Monocytes # (Auto) 0.8 K/uL (0.1-1.0) Eosinophils # (Auto) 0.08 K/uL (0.00-0.70) Basophils # (Auto) 0.04 K/uL (0.00-0.20) Absolute Immature Granulocyte (auto 0.04 K/uL (0-1) Nucleated Red Blood Cells 0.0 % (0.0-0.19) Red Blood Cell Morphology See comments Sodium Level 140 mmol/L (136-145) Potassium Level 4.1 mmol/L (3.5-5.1) Chloride Level 104 mmol/L (101-111) Carbon Dioxide Level 30 mmol/L (21-32) Blood Urea Nitrogen 15 mg/dL (7-18) Creatinine 0.6 mg/dL (0.5-1.0) Glomerular Filtration Rate Calc 128 mL/min (>90) Random Glucose 98 mg/dL (70-105) Total Calcium 9.0 mg/dL (8.5-10.1) Total Bilirubin 0.2 mg/dL (0.2-1.0) Direct Bilirubin 0.1 mg/dL (0.0-0.3) Aspartate Amino Transf (AST/SGOT) 26 U/L (10-37) Alanine Aminotransferase (ALT/SGPT) 44 U/L (12-78) Alkaline Phosphatase 98 U/L (50-136) Total Protein 7.5 g/dL (6.0-8.3) Albumin 3.2 g/dL (3.5-5.0) L Lipase 42 U/L (16-77) Labs Reviewed?: Yes MDM MDM: Differential diagnosis: Gastritis, gastroenteritis, viral illness There are no social concerns with this patient. Prescription drug management Prescriptions will include: Zofran and Pepcid Medical management and examination interpretation discussions were had by me with other qualified healthcare professionals as indicated for the patient's care. ED Course Orders Procedure Category Date Status Time ,Urine Test LAB 02/24/25 Complete 09:23 Urinalysis LAB 02/24/25 Complete W/Microscopic 09:23 Influenza Type A & B, LAB 02/24/25 Complete Rapid 09:23 Covid Rna Naat LAB 02/24/25 Complete 09:23 Cbc With Differential LAB 02/24/25 Complete 10:04 Basic Metabolic Panel LAB 02/24/25 Complete 10:04 Hepatic Function Panel LAB 02/24/25 Complete 10:04 Lipase LAB 02/24/25 Complete 10:04 Ondansetron 4mg Inj PHA 02/24/25 Complete (Zofran 4mg Inj) 10:30 Famotidine 20mg Vial PHA 02/24/25 Complete (Pepcid 20mg Vial) 10:30 0.9%Nacl 1000ml (Ns PHA 02/24/25 Complete 1000ml) 10:30 Current Medications Medications (Trade) Dose Ordered Sig/Nohemi Route PRN Reason Start Time Stop Time Status Last Admin Dose Admin Famotidine (Pepcid 20mg Vial) 20 mg ONCE ONCE IV 02/24/25 10:30 02/24/25 10:31 DC 02/24/25 10:35 Ondansetron HCl (zoFRAN 4MG INJ) 4 mg ONCE ONCE IVP 02/24/25 10:30 02/24/25 10:31 DC 02/24/25 10:35 Sodium Chloride 1,000 ml @ 0 mls/hr ONCE ONCE IV 02/24/25 10:30 02/24/25 10:31 DC 02/24/25 10:35 Vital Signs Date Time Temp Pulse Resp B/P (MAP) Pulse Ox O2 Delivery O2 Flow Rate FiO2 02/24/25 11:02 78 19 115/63 99 Room Air* 0 21 02/24/25 09:23 97.9 72 20 108/67 99 Room Air* 0 21 02/24/25 09:15 97.9 81 14 111/55 99 Room Air 0 DX & DISP Disposition: Discharge Departure Impression: Primary Impression: Viral gastroenteritis Additional Impression: Gastritis Condition: Stable Scripts Famotidine (Pepcid) 20 Mg Tablet 1 TAB PO BID for 30 Days, #60 TAB 0 Refills Prov: YOVANNY DESAI 02/24/25 Ondansetron (Ondansetron Odt) 4 Mg Tab.rapdis 4 MG PO BID for 7 Days, #14 TAB Prov: YOVANNY DESAI 02/24/25 Additional Instructions: Your blood work today is stable. Your kidney function is normal. Your electrolytes are normal. Your liver function tests are normal. Your urinalysis does not show any evidence of infection. You have tested negative for influenza a, influenza B, COVID-19. Your symptoms may be related to something that you ate. Follow up with your primary care doctor for further evaluation. Referrals: SELF,REFERRAL (PCP) I have reviewed the case, and I agree with, Diagnosis and Plan I performed the substantive portion of the visit. I have reviewed and personally made and approve the management plan that is documented in the note by myself or the LYLY. I acknowledge for responsibility for the patient's management plan. YOVANNY DESAI Feb 24, 2025 12:12
[2025-02-24 12:16] VITALS: BP 127/80; PULSE 70; RESP 18; TEMP 97.9; O2SAT 99
== END 2025-02-24 12:20 | disposition home or self-care (01) ==
LOC: EDH 09:14
DX: A08.4 Viral intestinal infection, unspecified (principal); K29.70 Gastritis, unspecified, without bleeding; Z88.1 Allergy status to other antibiotic agents; Z20.822 Contact with and (suspected) exposure to COVID-19
CPT/HCPCS: 99284; 96374; 87635; 96361; 96375; 80076; 80048; 83690; 85025; 87804 ×2; 81001; 81025; 36415; J3490; J7030; J2405

== ENCOUNTER 2025-06-11 18:00 | Emergency (ER) | payer BC ==
[~2025-06-11] VITALS: Ht 154.9 cm; Wt 106.6 kg
[~2025-06-11 18:00] MED LIST changes: +FAMO-136 PO; +ONDA-243 PO
--- NOTE | 2025-06-11 19:15 | NUR ---
UA CUP PROVIDED
--- NOTE | 2025-06-11 19:25 | NUR ---
UA COLLECTED AND SENT
[2025-06-11 19:59] LABS: IMMATURE GRANULOCYTE ABSOLUTE 0.04 K/uL (0-1); NUCLEATED RED BLOOD CELLS 0.0 % (0.0-0.19); PLATELET COUNT (AUTO) 391 K/uL (130-400); RED BLOOD CELL COUNT(AUTO) 5.43 MIL/uL (4.00-5.50); RED CELL DISTRIBUTION WIDTH 15.9 % (11.0-15.5); WHITE BLOOD COUNT (AUTO) 13.6 K/uL (4.8-10.8)
[2025-06-11 20:05] LABS: CREATININE 0.6 mg/dL (0.5-1.0); GLOMERULAR FILTR. RATE CALC 128.0 mL/min (>90); GLUCOSE,RANDOM 98.0 mg/dL (70-105); SODIUM SERUM 139.0 mmol/L (136-145); UREA NITROGEN, BLOOD 13.0 mg/dL (7-18)
[2025-06-11 20:16] LABS: HCG,QUANTITATIVE 0.0 mIU/mL (0-5)
[2025-06-11 20:55] LABS: APPEARANCE,URINE CLEAR (CLEAR); GLUCOSE, URINE (UA) NEGATIVE (NEGATIVE); LEUKOCYTE ESTERASE ,URINE NEGATIVE Leu/uL (NEGATIVE); NITRATE,URINE NEGATIVE (NEGATIVE); OCCULT BLOOD,URINE NEGATIVE (NEGATIVE)
[2025-06-11 20:56] LABS: ADD UA MICROSCOPIC NO
--- NOTE | 2025-06-11 21:37 | ERN ---
ED Note History of Present Illness Stated Complaint: LEFT LOWER PELVIC PAIN, RT BREAST PAIN Chief Complaint: Multiple Complaints Time Seen by MD: 19:16 Time Seen by Midlevel: 19:18 Dictation: 24-year-old female with no past medical history coming in with complaints of left lower pelvic pain, patient states she has been told in the past that she had some sort of cyst but has not followed up with her OBGYN. Patient also states while she was in the shower she noticed some clear white drainage coming from her right breast. Denies having any fever, nausea and vomiting. Denies any dysuria or hematuria. States she is late on her period. Mother states she took an at-home test and was negative. Allergies: Coded Allergies: ceftriaxone (Unverified Allergy, Intermediate, HIVES, 02/24/25) Home Meds Active Scripts Famotidine (Pepcid) 20 Mg Tablet, 1 TAB PO BID for 30 Days, #60 TAB 0 Refills Prov:YOVANNY DESAI PAC 02/24/25 Ondansetron (Ondansetron Odt) 4 Mg Tab.rapdis, 4 MG PO BID for 7 Days, #14 TAB Prov:YOVANNY DESAI PAC 02/24/25 Lactobacillus Acidophilus (Acidophilus Probiotic) 500 Million Cell Capsule, 1 CAP PO DAILY for 30 Days, #30 CAP 0 Refills Prov:SALLY MORENO MD 02/02/25 Famotidine (Famotidine) 20 Mg Tablet, 1 TAB PO BID for 20 Days, #40 TAB 0 Refills Prov:SALLY MORENO MD 02/02/25 Cyclobenzaprine HCl (Flexeril) 10 Mg Tab, 10 MG PO TID for muscle sstiffness for 10 Days, #30 TAB 0 Refills Prov:RAY [employer] CEMENTER [employer]SO[employer] MACHINE 01/21/24 Ibuprofen (Ibuprofen 800 mg Tab) 800 Mg Tab, 800 MG PO Q8H PRN for fever or pain, #30 TAB 0 Refills Prov:RAY [employer] MACHINE 01/21/24 Methylprednisolone (Medrol) 4 Mg Tab.ds.pk, 4 MG PO AD, #1 UNIT Prov:RAY [employer] MACHINE 01/21/24 Past Medical History Past Medical History: Anemia, Other Additional Past Medical Hx: CHRONIC BACK PAIN Surgical History: Other Surgical History Other: ARMANDO OSORIO, LIPO, BBL Family History: Negative Social History: Negative History: Not Applicable LMP: Apr 27, 2025 Review of System Dictation Constitutional: Negative for fever,chills, and weight loss Eyes: Negative for injury, pain,redness, and discharge ENT: Negative for injury,pain or swelling Cardiovascular: Negative for chest pain, palpitations, and edema Respiratory: Negative for shortness of breath, cough, and wheezing, Abdomen/GI: Left lower pelvic pain, no nausea, no vomiting, no diarrhea, and no constipation Back: Negative for injury and pain : Negative for injury, bleeding and discharge MS/Extremity: Negative for injury and deformity Skin: Negative for rash, and discoloration Neuro: Negative for headache, weakness, numbness, tingling, and seizure Psych: Negative for suicide ideation, homicidal ideation, and hallucinations Review of Systems: was completed Initial Vital Sign VS Vital Signs Date Time Temp Pulse Resp B/P (MAP) Pulse Ox O2 Delivery O2 Flow Rate FiO2 06/11/25 19:15 98.1 89 18 141/84 100 Room Air Physical Exam Dictation General: awake, alert, NAD Head/Face: Normocephalic, atraumatic Eyes: PERRL, EOMI, vision at baseline ENT: oral cavity clear, TMs clear, no signs of infection Neck: Trachea midline, supple, no nuchal rigidity Cardiovascular: RRR, normal S1/S2, No MRGs, no JVD Respiratory: CTAB, no respiratory distress, No rales or wheezes Abdomen: Soft, non-tender, non-distended, normal bowel sounds, no guarding or rebound. Dirty Skin: Warm, dry, normal turgor, no rash MS/Extremity: Pulses equal, no cyanosis, neurovascular intact, FROM Neuro: COAx4, GCS 15, strength 5/5, CN 2-12 intact, normal cerebellar exam, normal gait, Psych: Normal behavior, mood, and affect normal Results (Laboratory/Radiology) Laboratory/Radiology Laboratory Tests Test 06/11/25 19:25 06/11/25 19:47 Urine Color COLORLESS (YELLOW) Urine Appearance CLEAR (CLEAR) Urine pH 6.0 (5.0-8.0) Urine Specific [place] 1.008 (1.001-1.031) Urine Protein NEGATIVE mg/dL (NEGATIVE) Urine Glucose (UA) NEGATIVE mg/dL (NEGATIVE) Urine Ketones NEGATIVE mg/dL (NEGATIVE) Urine Occult Blood NEGATIVE (NEGATIVE) Urine Nitrate NEGATIVE (NEGATIVE) Urine Bilirubin NEGATIVE mg/dL (NEGATIVE) Urine Urobilinogen 0.2 mg/dL (0.2-1.0) Urine Leukocyte Esterase NEGATIVE Key/uL White Blood Count 13.6 K/uL (4.8-10.8) H Red Blood Count 5.43 MIL/uL (4.00-5.50) Hemoglobin 11.7 g/dL (12.0-16.0) L Hematocrit 39.7 % (36-48) Mean Corpuscular Volume 73.1 fL (79-99) L Mean Corpuscular Hemoglobin 21.5 pg (27.0-33.0) L Mean Corpuscular Hemoglobin Concent 29.5 g/dL (32.0-36.0) L Red Cell Distribution Width 15.9 % (11.0-15.5) H Platelet Count 391 K/uL (130-400) Mean Platelet Volume 10.7 fL (7.5-10.5) H Immature Granulocyte % (Auto) 0.3 % (0-1) Neutrophils (%) (Auto) 68.9 % (40.0-77.0) Lymphocytes (%) (Auto) 22.9 % (21.0-51.0) Monocytes (%) (Auto) 6.9 % (3.0-13.0) Eosinophils (%) (Auto) 0.6 % (0.0-8.0) Basophils (%) (Auto) 0.4 % (0.0-5.0) Neutrophils # (Auto) 9.4 K/uL (1.8-7.7) H Lymphocytes # (Auto) 3.1 K/uL (1.0-4.8) Monocytes # (Auto) 0.9 K/uL (0.1-1.0) Eosinophils # (Auto) 0.08 K/uL (0.00-0.70) Basophils # (Auto) 0.05 K/uL (0.00-0.20) Absolute Immature Granulocyte (auto 0.04 K/uL (0-1) Nucleated Red Blood Cells 0.0 % (0.0-0.19) Red Blood Cell Morphology See comments Sodium Level 139 mmol/L (136-145) Potassium Level 3.7 mmol/L (3.5-5.1) Chloride Level 103 mmol/L (101-111) Carbon Dioxide Level 26 mmol/L (21-32) Blood Urea Nitrogen 13 mg/dL (7-18) Creatinine 0.6 mg/dL (0.5-1.0) Glomerular Filtration Rate Calc 128 mL/min (>90) Random Glucose 98 mg/dL (70-105) Total Calcium 9.4 mg/dL (8.5-10.1) Human Chorionic Gonadotropin, Quant 0 mIU/mL (0-5) Labs Reviewed?: Yes ED Course ED Course Orders Procedure Category Date Status Time Cbc With Differential LAB 06/11/25 Complete 19:36 Basic Metabolic Panel LAB 06/11/25 Complete 19:36 Urinalysis Profile LAB 06/11/25 Complete 19:36 Hcg,Quantitative LAB 06/11/25 Complete 19:36 Us Pelvic Non-Ob Comp US 06/11/25 Taken 19:36 Chlamydia & Gc Pcr DARRIAN 06/11/25 In Process 19:38 Vital Signs Date Time Temp Pulse Resp B/P (MAP) Pulse Ox O2 Delivery O2 Flow Rate FiO2 06/11/25 19:15 98.1 89 18 141/84 100 Room Air Medical Decision Making MDM MDM: 24-year-old female with no past medical history coming in with complaints of left lower pelvic pain, patient states she has been told in the past that she had some sort of cyst but has not followed up with her OBGYN. Patient also states while she was in the shower she noticed some clear white drainage coming from her right breast. Denies having any fever, nausea and vomiting. Denies any dysuria or hematuria. States she is late on her period. Mother states she took an at-home test and was negative. On breast exam, right breast is benign. There is no palpable mass. There is no redness, no streaking, no warmth to touch. There is no drainage at this time. Suspicion for infectious process. CBC shows white count of 13 however seems to be patient's baseline as previous visit was also at 12. Hemoglobin of 11 and hematocrit of 39. Platelet count is 391. Chemistries unremarkable. No electrolyte abnormality. Normal kidney function. Patient isn't not . UA shows no evidence of urinary tract infection. Two separate physical abdominal exams were done one on arrival and one prior to discharge, no tenderness on palpation to right lower quadrant. Abdomen is soft and nondistended. Patient's does not have any other symptom as far has a abdominal pain, nausea and vomiting, diarrhea, fever, cough, congestion. Preliminary report of the ultrasound shows right ovary measuring 2 x 1 bite to not able to identify flow due to large body habitus person, left ovary measuring 2 x 2 x 2 with positive flow and a follicle. Her spoke to filter changing technician, dated at the time of doing a pelvic exam he was putting pressure on the right lower quadrant pain to try and get the measurement of the flow, patient states patient denied having any pain to that area. Consulted with my attending ER physician, recommended to get a transvaginal Spoke to patient regarding findings. Educated patient that we are unable to see if her right ovary has a flow. Educated patient she would benefit from a transvaginal ultrasound to evaluate the floor of the ovary. However patient states she does not have pain to that area she would rather not has a of the ultrasound done and just follow up outpatient with her OBGYN Dr. Fox. Also d iscussed with the patient there is no suspicion for infection or mass to the right breast. However she is to still follow up with her OBGYN. Differential diagnosis: , urinary tract infection, ovarian torsion, ectopic Rationale: Tests considered and ordered secondary to shared decision making include: Previous outside records reviewed: Old ER visits. Risk of complication and/or morbidity or mortality of patient management: None Medications-Per medication reconciliation Need for hospitalization: Patient does not meet criteria for hospitalization. Need for emergency major/minor surgery: No There are no social concerns with this patient. Prescription drug management Prescriptions will include symptomatic care Patient's prior external medical records from other ER visits were reviewed by me as indicated. Prior testing and results from previous visits were reviewed. Prior tests were taken into account with medical decision making and resource utilization, independent historian/historians were used to obtain complete medical history. I independently interpreted the test that were performed, results were reviewed by me and considered findings on radiology if ordered. Medical management and examination interpretation discussions were had by me with other qualified healthcare professionals as indicated for the patient's care. DX & DISP Disposition: Discharge Departure Impression: Primary Impression: Abdominal pain Condition: Stable Additional Instructions: If You develop any fever, abdominal pain, nausea or vomiting or diarrhea please return back to the emergency room. Referrals: SELF,REFERRAL (PCP) I have reviewed the case, and I agree with, Diagnosis and Plan THALIA MALDONADO [facility] Jun 11, 2025 21:37
[2025-06-11 21:50] VITALS: BP 127/56; PULSE 88; RESP 18; TEMP 97.7; O2SAT 100
--- NOTE | 2025-06-11 22:12 | HMCIMG ---
EXAMINATION: Complete Transabdominal Ultrasound of Pelvis. CLINICAL HISTORY: To rule out ovarian torsion. COMPARISON: None provided. TECHNIQUE: Multiple real-time grayscale images of the pelvis were obtained with a transabdominal transducer. In addition, color Doppler is medically necessary to perform to assess for vascularity and blood flow. FINDINGS: The uterus is anteverted, normal in caliber, and measures 6.3 x 2.3 x 2.8 cm in the craniocaudal, AP, and transverse dimensions, respectively. The endometrium measures approximately 0.43 cm. Cervix appears normal. The right ovary is normal in caliber and measures 2.7 x 1.5 x 2.2 cm. Dominant follicle in the right ovary measuring 1.2 x 1.1 cm. The left ovary is normal in caliber and measures 2.6 x 2.1 x 2.5 cm. Dominant follicle in the left ovary measuring 1.5 x 1.4 x 1.6 cm. There is no free fluid in the cul-de-sac. IMPRESSION: No torsion of the ovaries. No adnexal mass. No focal lesion in the uterus. /[place]
== END 2025-06-11 21:55 | disposition home or self-care (01) ==
LOC: EDH 18:00
DX: R10.20 Pelvic and perineal pain unspecified side (principal); Z88.1 Allergy status to other antibiotic agents; Z79.899 Other long term (current) drug therapy
CPT/HCPCS: 36415; 76856; 80048; 81003; 84702; 85025; 87491; 87591; 99284